=== PATIENT | female | born 1995 | race Caucasian/White ===

== ENCOUNTER 2022-05-09 06:54 | Inpatient (IN) | payer OTHER ==
[~2022-05-09 06:54] MED LIST: COLACE100 MG PO; FEOSOL325 MG PO; MOTRIN600 MG PO; OXYCODONE-ACET1 EAC1 PO; PRENATAL FORMU1 EACH PO
[2022-05-09 08:28] LABS: HCT 31.1 % (37.0-47.0); HGB 9.3 g/dl (12.5-16.0); MCHC 29.9 g/dL (32.0-36.0); MCV 76.8 fL (78.0-100.0); PLT 148 K/uL (150-400); RBC 4.05 M/uL (4.20-5.40); RDW 18.3 % (11.5-14.0); WBC 7.1 K/uL (4.0-10.5)
[2022-05-09 09:55] LABS: BILIRUBIN 1+ mg/dL (NEGATIVE); BLOOD TRACE-INTACT Ery/uL (NEGATIVE); CLARITY HAZY (CLEAR); COLOR YELLOW (YELLOW); GLUCOSE (U) NORMAL (NORMAL); LEUKOCYTES 2+ Leu/uL (NEGATIVE); NITRITE NEGATIVE (NEGATIVE); PROTEIN TRACE (LOW) mg/dL (NEGATIVE); SPECIFIC GRAVITY >=1.030 (1.001-1.030); UROBILINOGEN 0.2 mg/dL (0.2-1.0)
[2022-05-09 10:03] LABS: SQUAMOUS EPITHELIAL CELLS 20-50
[2022-05-09 10:04] LABS: BACTERIA 2+; URINARY RBC RARE; URINARY WBC TNTC
[2022-05-10 06:20] LABS: HCT 28.8 % (37.0-47.0); HGB 8.8 g/dl (12.5-16.0); MCH 23.5 pg (25.0-31.0); MCHC 30.6 g/dL (32.0-36.0); MCV 76.8 fL (78.0-100.0); PLT 138 K/uL (150-400); RBC 3.75 M/uL (4.20-5.40); RDW 18.2 % (11.5-14.0); WBC 10.9 K/uL (4.0-10.5)
== END 2022-05-11 12:12 | disposition home or self-care (01) | DRG 787 ==
LOC: FOB 06:54
PROVIDERS: ADMIT Obstetrics & Gynecology
PROC: 0T2BX0Z Change Drainage Device in Bladder, External Approach (ICD-10-PCS; 2022-05-09)
PROC: 10D00Z1 Extraction of Products of Conception, Low, Open Approach (ICD-10-PCS; principal; 2022-05-09 09:30)
DX: O36.5930 Maternal care for other known or suspected poor fetal growth, third trimester, not applicable or unspecified (principal); D62 Acute posthemorrhagic anemia; O26.873 Cervical shortening, third trimester; O99.12 Other diseases of the blood and blood-forming organs and certain disorders involving the immune mechanism complicating childbirth; O34.211 Maternal care for low transverse scar from previous cesarean delivery; Z20.822 Contact with and (suspected) exposure to COVID-19; Z37.0 Single live birth; Z3A.37 37 weeks gestation of pregnancy; O99.02 Anemia complicating childbirth; D56.3 Thalassemia minor; D69.6 Thrombocytopenia, unspecified; D50.9 Iron deficiency anemia, unspecified; O99.824 Streptococcus B carrier state complicating childbirth; O99.892 Other specified diseases and conditions complicating childbirth; R33.9 Retention of urine, unspecified
CPT/HCPCS: 36415; 81001; 86850; 86900; 86901; 87088; J0690; J1885; J2001; J2274; J2370; J2405; J2916; J3010; J7120; U0002